=== PATIENT | female | born 1955 | race Caucasian/White ===

== ENCOUNTER 2017-04-13 15:15 | Inpatient (IN) | payer OTHER ==
[2017-04-13 15:52] VITALS: BMI 41.5
--- NOTE | 2017-04-17 05:43 | HP ---
DATE OF SURGERY: 04/17/2017 REASON FOR ADMISSION: Uterine prolapse with symptomatic cystocele. SCHEDULED PROCEDURE: Total laparoscopic hysterectomy, bilateral salpingo-oophorectomy, and anterior repair. HISTORY OF PRESENT ILLNESS: Ms. Munoz is a 62-year-old G1, P2, status post BTL, status post post erior repair, status post mid-urethral sling, who has been my patient for a long time. She has had a worsening cystocele, but it is symptomatic with urinary frequency and fullness feeling. She was e valuated by Dr. Baumann and he does not believe that she has recurrent stress incontinence and does not need any sort of incontinence procedure at this time. She desires definitive surgical managemen t. EQUIPMENT ENGINEERING TECHNICIAN HISTORY: , status post BTL, no history of dysplasia. Negative mammogram, negative Pap wi thin the past 3 years. PAST MEDICAL HISTORY: Significant for hypothyroidism and mild hypertension. 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 CURRENT MEDICATIONS: Include Chromium, Synthroid, HCTZ. SOCIAL HISTORY: Denies tobacco, alcohol, or IV drug abuse. FAMILY HISTORY: Noncontributory. REVIEW OF SYSTEMS: Noncontributory. PHYSICAL EXAMINATION: GENERAL: Reveals a white female. VITAL SIGNS: 4 feet 11 inches, 205 pounds, BMI of 41. HEENT: Within normal limits . HEART: Regular rate and rhythm. BREASTS: Without masses bilaterally. ABDOMEN: Soft and nontender. No rebound or guarding. GENITOURINARY: Vulva without lesions. Vagina without discharge. A grade 3 cystocele is noted with cervical descent and a small uterus with no adnexal mass. IMPRESSION: Persistent cystocele symptomatic with uterine prolapse. PLAN: I discussed with the patient options. We will proceed with laparoscopic hysterectomy, BSO, a nd anterior repair. She understands risks and benefits of the procedure including bleeding, infecti on, and failure to correct the issue and possible recurrence of cystocele. We will administer appro priate antibiotic and DVT prophylaxis.
[2017-04-17] MEDS ORDERED: Scopolamine 1.5 mg/72 hour Patch ONE (08:01)
[2017-04-17] MEDS ORDERED: Midazolam HCl 2 mg/2 ml Vial ONE ×2 (08:01→08:26)
[2017-04-17] MEDS ORDERED: Bupivacaine HCl 0.5%/Epinephrine 1:200,000/PF 30 ml Vial ONE (08:23)
[2017-04-17] MEDS ORDERED: Lidocaine 1% w/Epinephrine 1:200K 30 ML VIAL ONE (08:25)
[2017-04-17] MEDS ORDERED: Fentanyl 100 MCG/2 ML VIAL ONE ×3 (08:26→11:25)
[2017-04-17] MEDS ORDERED: Glycopyrrolate 0.2 MG/ML 5 ML SYRINGE ONE (08:51)
[2017-04-17] MEDS ORDERED: Ondansetron HCl/PF 4 MG/2 ML Vial ONE (08:51)
[2017-04-17] MEDS ORDERED: Dexamethasone 20 MG/5 ML VIAL ONE (08:51)
[2017-04-17] MEDS ORDERED: Lidocaine 1% PF 5 ML VIAL ONE (08:51)
[2017-04-17] MEDS ORDERED: Propofol 200 MG/20 ML VIAL ONE (08:51)
[2017-04-17] MEDS ORDERED: Promethazine HCl 25 MG/ML VIAL SLOW IVP PRN (10:45)
[2017-04-17] MEDS ORDERED: Ondansetron HCl/PF 4 MG/2 ML Vial IVP PRN ×2 (10:45→12:19)
[2017-04-17] MEDS ORDERED: Promethazine HCl 25 MG/ML VIAL IM PRN (10:45)
[2017-04-17] MEDS ORDERED: Simethicone Chewable 80 MG TAB PO PRN (12:19)
[2017-04-17] MEDS ORDERED: Bisacodyl 10 MG SUPP PR PRN (12:19)
[2017-04-17] MEDS ORDERED: HYDROcodone/Acetaminophen 10/325 mg Tablet PO PRN ×2 (12:19)
[2017-04-17] MEDS ORDERED: Zolpidem Tartrate 5 MG TAB PO PRN (12:19)
[2017-04-17] MEDS ORDERED: Morphine Sulfate 2 MG/ML SYRINGE SLOW IVP PRN (12:19)
[2017-04-17] MEDS ORDERED: diphenhydrAMINE HCl 25 MG CAP PO PRN (12:19)
[2017-04-17] MEDS: Sodium Chloride 0.9% 1,000 ML IV SCH (12:26)
[2017-04-17] MEDS: Ibuprofen 800 MG TAB PO SCH ×2 (15:00→20:58)
--- NOTE | 2017-04-17 17:11 | OP ---
DATE OF PROCEDURE: 04/17/2017 PREOPERATIVE DIAGNOSES: Cystocele, symptomatic with uterine prolapse. POSTOPERATIVE DIAGNOSES: Cystocele, symptomatic with uterine prolapse. PROCEDURE PERFORMED: Total laparoscopic hysterectomy, bilateral salpingo-oophorectomy, da Jazmín pauline ot anterior repair. SURGEON: Kenton Oliveira M.D. HEAT AND FROST INSULATOR HELPER: Aparna Martinez MD ESTIMATED BLOOD LOSS: 100 mL COMPLICATIONS: None. DRAINS: Nguyen to gravity. SPECIMENS REMOVED: Uterus, tubes, and ovaries. OPERATIVE FINDINGS: 1. Second and third degree uterine prolapse with third degree cystocele. 2. Normal tubes and ovaries bilaterally. 3. Hemostasis with clear urine, counts correct at the end of the procedure. DISPOSITION: Recovery room in good condition. DESCRIPTION OF OPERATIVE PROCEDURE: After obtaining proper informed consent, the patient was taken to the operating room where general endotracheal anesthesia was achieved without difficulty. The pa tient was prepped and draped in the dorsal lithotomy position in [place] stirrups. Weighted speculum placed in vagina. Cervix was identified and grasped with single tooth tenaculum at 12 o'clock, soun ded to 7 cm. SATINDER manipulator with a 6 cm obturator and 3.5 vaginal dough maker was placed without d ifficulty and a Nguyen catheter placed. Residential Framing Carpenter changed his gloves and turned his attention to the abdominal portion of the procedure. A 5 mL of Marcaine injected at the superior aspect of the umbil icus and a 12 mm skin incision made. A 12 mm trocar placed after Veress needle insufflated the abdo men of 15 mmHg. Confirmation of entry into the peritoneal cavity without trauma to underlying visce ra was noted. The patient was placed in steep Trendelenburg position, and right and left lateral ro bot trocars were placed under direct visualization. An 11 mm oil well service operator certified registered dental assistant port was placed in the right upper quadrant under direct visualization avoiding bowel and omentum, which was adhesed to the anterior abdominal wall. Fenestrated forceps placed in the left hand and monopolar scissors in the right. Infundibulopelvic ligament on the patient's left was skeletonized, mobilized, coagulate d and transected, carried to the broad and the round down to the level of the internal cervical os. Identical procedure carried out on the patient's right. The vesicouterine peritoneum was incised s harply and dissected off the lower uterine segment and cervix was noted to be quite redundant second jh to the patient's prolapse and cystocele. Posteriorly, the peritoneum was taken off of the cervi x posteriorly. Uterine vessels were skeletonized on the left and coagulated and transected and the identical procedure carried out on the patient's right. Anteriorly at 12 o'clock, the vagina was en tered laparoscopically and incision set from 12 to 3, 12 to 9 and from 3 to 6 and from 9 to 6. Ampu tating the specimen, which was then pulled into the vagina and maintained pneumoperitoneum. Suction irrigation was carried out and good hemostasis noted on all pedicles. Because of the patient's michael unt of redundant tissue and prolapse and the need for anterior repair, decision was made not to clos e the cuff laparoscopically. The da Jazmín instruments were removed. The trocars were removed. The abdomen desufflated of carbon dioxide and the ports closed x4 using Monocryl and Dermabond. Legs w ere rotated up. Attention was turned to the vaginal portion of the procedure. Specimen was pulled out of the vagina. Limits of the cuff were identified, limits of the patient's cystocele was identi fied and the bladder was noted to be well drained. Anterior vesicovaginal space was infiltrated usi ng lidocaine with epinephrine 10 mL and Metzenbaum were used to open it from the vaginal cuff at 12 o'clock up to approximately 2 cm below the level of the urethra. Blunt and sharp dissection took th e bladder down off each side. The vesicovaginal fascia was then plicated using horizontal mattresse s of 2-0 Vicryl, reducing the cystocele. Excess vaginal mucosa was excised. The vagina was closed in a [id number] manner using a 2-0 Vicryl suture starting at the posterior cul-de-sac, incorporati ng the uterosacral ligaments and then proceeding up and closing the anterior repair as well. Good h emostasis was noted. Clear urine was noted. A moistened Kerlix Vag pack was placed and the patient was awakened, extubated, and taken to the recovery in good condition.
[2017-04-18] MEDS: Ibuprofen 800 MG TAB PO SCH ×2 (05:21→14:17)
[2017-04-18] MEDS: Sodium Chloride 0.9% 1,000 ML IV SCH ×2 (05:27→14:17)
[2017-04-18 05:50] LABS: Hematocrit 34.9 % (36.0-47.0); Mean Platelet Volume 8.2 fL (7.4-10.4); Red Blood Cell (RBC) Count 3.88 mill/uL (4.20-5.40); White Blood Cell (WBC) Count 14.1 thou/uL (4.8-10.8)
[2017-04-18] MEDS ORDERED: Levothyroxine Sodium 100 MCG TAB PO SCH (06:00)
[2017-04-18 11:23] VITALS: BP 117/78; TEMP 99.1
== END 2017-04-18 15:44 | disposition home or self-care (01) | DRG 743 ==
LOC: SURG A 04-17 06:27 → 3SE 04-17 11:27
PROVIDERS: ADMIT Obstetrics & Gynecology; ATTEND Obstetrics & Gynecology
PROC: 0UT90ZZ Resection of Uterus, Open Approach (ICD-10-PCS; principal; 2017-04-17)
PROC: 0UTC0ZZ Resection of Cervix, Open Approach (ICD-10-PCS; 2017-04-17)
PROC: 0UT20ZZ Resection of Bilateral Ovaries, Open Approach (ICD-10-PCS; 2017-04-17)
PROC: 0UT70ZZ Resection of Bilateral Fallopian Tubes, Open Approach (ICD-10-PCS; 2017-04-17)
PROC: 0JQC0ZZ Repair Pelvic Region Subcutaneous Tissue and Fascia, Open Approach (ICD-10-PCS; 2017-04-17)
PROC: 8E0W4CZ Robotic Assisted Procedure of Trunk Region, Percutaneous Endoscopic Approach (ICD-10-PCS; 2017-04-17)
DX: N81.10 Cystocele, unspecified (principal); I10 Essential (primary) hypertension; N81.3 Complete uterovaginal prolapse; N39.3 Stress incontinence (female) (male); E03.9 Hypothyroidism, unspecified
CPT/HCPCS: 36415; 85027; 88307; A4216; J0670; J1100; J2001; J2250; J2405; J2704; J3010

== ENCOUNTER 2017-06-28 08:25 | Outpatient (CLI) | payer OTHER | END 2017-06-28 08:26 | disposition home or self-care (01) | LOC: BICMRI 08:25 | PROVIDERS: ATTEND Orthopaedic Surgery | DX: M25.511 Pain in right shoulder (principal); M19.011 Primary osteoarthritis, right shoulder ==

== ENCOUNTER 2017-07-10 07:12 | Outpatient (CLI) | payer OTHER | END 2017-07-10 07:13 | disposition home or self-care (01) | LOC: BICMAMMO 07:12 | PROVIDERS: ATTEND Obstetrics & Gynecology | DX: Z12.31 Encounter for screening mammogram for malignant neoplasm of breast (principal); Z13.820 Encounter for screening for osteoporosis | CPT/HCPCS: 77063; 77067; 77080; G0202 ==

== ENCOUNTER 2021-04-22 12:30 | Emergency (ER) | payer OTHER, BC ==
[2021-04-22] MEDS ORDERED: Acetaminophen 500 MG TAB ONE (13:11)
[2021-04-22] MEDS ORDERED: Boostrix 0.5 ML (Tdap) VIAL ONE (13:11)
[2021-04-22 13:43] LABS: #Eosinphils 0.1 thou/uL (0.0-0.7); #Lymphocytes 1.6 thou/uL (1.20-3.40); #Monocytes 0.7 thou/uL (0.11-0.59); #Neutrophils 5.1 thou/uL (1.40-6.50); %Basophils 0.3 % (0.0-1.0); %Eosinophils 1.6 % (0.0-10.0); %Lymphocytes 21.6 % (21.0-51.0); %Monocytes 8.7 % (0.0-10.0); %Neutrophils 67.9 % (42.0-75.0); Hemoglobin 13.3 g/dL (12.0-16.0); Mean Corpuscular HGB CONC 33.8 g/dL (32.0-36.0); Mean Corpuscular Hemoglobin 30.3 pg (27.0-31.0); Mean Corpuscular Volume 89.7 fL (78.0-98.0); Mean Platelet Volume 9.3 fL (7.4-10.4); Platelet Count 216 thou/uL (130-400); RBC Distribution Width 13.6 % (11.5-14.5); Red Blood Cell (RBC) Count 4.39 mill/uL (4.20-5.40); White Blood Cell (WBC) Count 7.5 thou/uL (4.8-10.8)
[2021-04-22 14:51] LABS: ALT (SGPT) 15 U/L (8-55); AST (SGOT) 36 U/L (5-34); Albumin 3.2 g/dL (3.4-4.8); Alkaline Phosphatase 81 U/L (40-110); Anion Gap 14 mmol/L (10-20); BUN (Urea Nitrogen) 6 mg/dL (9.8-20.1); Bilirubin, Total 0.7 mg/dL (0.2-1.2); Calc. Creatinine Clearance 0 mL/min (70-130); Calcium 8.5 mg/dL (7.8-10.44); Carbon Dioxide 31 mmol/L (23-31); Chloride 99 mmol/L (98-107); Globulin 3.1 g/dL (2.4-3.5); Glucose 97 mg/dL (80-115); Potassium 3.1 mmol/L (3.5-5.1); Protein, Total 6.3 g/dL (5.8-8.1); Sodium 141 mmol/L (136-145)
[2021-04-22] MEDS ORDERED: Lidocaine 1% w/Epinephrine 1:100K 20 ML VIAL ONE (15:51)
[2021-04-22] MEDS ORDERED: Bacitracin 1 PK ONE (16:25)
[2021-04-22] MEDS ORDERED: Potassium Chloride 20 MEQ TAB ONE (16:56)
== END 2021-04-22 17:10 | disposition home or self-care (01) ==
LOC: ERS 12:30
DX: S01.81XA Laceration without foreign body of other part of head, initial encounter (principal); E87.6 Hypokalemia; W01.190A Fall on same level from slipping, tripping and stumbling with subsequent striking against furniture, initial encounter; E03.9 Hypothyroidism, unspecified; K21.9 Gastro-esophageal reflux disease without esophagitis; Z86.718 Personal history of other venous thrombosis and embolism; Z79.899 Other long term (current) drug therapy; Z79.01 Long term (current) use of anticoagulants
CPT/HCPCS: 70450; 71045; 72125; 80053; 85025; 90471; 90715; 93005; 96372